=== PATIENT | female | born 1990 | race Caucasian/White ===

== ENCOUNTER 2017-03-20 00:16 | Emergency (ER) | payer OTHER ==
[~2017-03-20] VITALS: Ht 165.1 cm; Wt 64.0 kg
[~2017-03-20 00:16] MED LIST: DIAZ5 PO; IBUP-232 PO
[2017-03-20 00:22] VITALS: BP 126/87; PULSE 89; RESP 18; TEMP 98.7; O2SAT 97
--- NOTE | 2017-03-20 01:40 | RADRPT ---
EXAM DATE/TIME: 03/20/2017 01:34 CORRECTION Corrected on: March 27, 2017; corrected Indications- Location [facility] COMPARISON: CHEST SINGLE AP, December 18, 2015, 14:51. INDICATIONS : Cough, rib pain MEDICAL HISTORY : None SURGICAL HISTORY : None ENCOUNTER: Initial ACUITY: 2 weeks PAIN SCORE: 1/10 LOCATION: Bilateral chest FINDINGS: A single view of the chest demonstrates the lungs to be symmetrically aerated without evidence of mas s, infiltrate or effusion. The cardiomediastinal contours are unremarkable. Osseous structures are intact. CONCLUSION: Normal examination. Jomar Workman MD on March 20, 2017 at 1:37 Board Certified Radiologist. This report was verified electronically. Board Certified Radiologist. This report was verified electronically. on March 27, 2017 at 13:57
[2017-03-20 02:06] LABS: AUTOMATED NEUTROPHIL # 5.6 TH/MM3 (1.8-7.7); BASOPHIL # 0.1 TH/MM3 (0-0.2); BASOPHIL % 1.1 % (0.0-2.0); EOSINOPHIL # 0.3 TH/MM3 (0-0.4); HEMATOCRIT 39.3 % (35.0-46.0); HEMO FLAGS DIFF FINAL; LYMPH % 34.1 % (9.0-44.0); LYMPHOCYTE # 3.4 TH/MM3 (1.0-4.8); MEAN CELL VOLUME 93.9 FL (80.0-100.0); MEAN CORPUSCULAR HEMOGLOBIN 33.4 PG (27.0-34.0); MEAN CORPUSCULAR HGB CONC 35.5 % (32.0-36.0); NEUT % 55.8 % (16.0-70.0); PLATELET COUNT 243 TH/MM3 (150-450); RED BLOOD COUNT 4.19 MIL/MM3 (4.00-5.30); RED CELL DISTRIBUTION WIDTH 12.9 % (11.6-17.2)
[2017-03-20] MEDS ORDERED: COUG100S PO (03:35)
--- NOTE | 2017-03-20 03:35 | PD ---
HPI Chief Complaint: Respiratory Symptoms Time Seen by Provider: 01:01 Travel History International Travel<30 days: No Contact w/Intl Traveler<30days: No Traveled to known affect area: No History of Present Illness HPI 27yo F with no PMH presents to the ED with c/o cough for 2 weeks. States she has blood tinged sputum at times. +Nasal congestion. Denies any fever, chest pain, sob, n/v, abdominal pain, focal weakness or numbness. States her ribs hurt with coughing. Denies any trauma, history of PE, DVT. +Cig smoker. PFSH Past Medical History Diminished Hearing: No Musculoskeletal: Yes (chronic mid back pain) Reproductive: Yes ("double ovaries,split and tilted uterus") Immunizations Current: Yes Tetanus Vaccination: Unknown Influenza Vaccination: No ?: Not LMP: IRREGULAR CYCLE : 3 Para: 2 Miscarriage: 0 : 1 Tubal Ligation: Yes (2010) Past Surgical History Section: Yes (X 2 ) Gynecologic Surgery: Yes (C-SEC X 1) Social History Alcohol Use: Yes (OCC) Tobacco Use: Yes (cigs 1/2 ppd) Substance Use: No Allergies-Medications (Allergen,Severity, Reaction): Coded Allergies: Lortab (Verified Allergy, Severe, Itching, 03/20/17) STATES ONLY ALLERGIC TO BRAND NAME-STATES CAN TAKE HYDROCODONE,. Reported Meds & Prescriptions Reported Meds & Active Scripts Active Valium (Diazepam) 5 Mg Tab 5 Mg PO TID PRN 5 Days Ibuprofen 600 Mg Tab 600 Mg PO Q6H PRN Review of Systems Except as stated in HPI: all other systems reviewed are Neg Physical Exam Narrative GENERAL: 27yo F not in distress. SKIN: Focused skin assessment warm/dry. HEAD: Atraumatic. Normocephalic. EYES: Pupils equal and round. No scleral icterus. No injection or drainage. ENT: Throat clear. Uvula midline. NECK: Trachea midline. No JVD. CARDIOVASCULAR: Regular rate and rhythm. No murmur appreciated. RESPIRATORY: No accessory muscle use. Clear to auscultation. Breath sounds equal bilaterally. GASTROINTESTINAL: Abdomen soft, non-tender, nondistended. No rebound tenderness or guarding. MUSCULOSKELETAL: No obvious deformities. No clubbing. No cyanosis. No edema. NEUROLOGICAL: Awake and alert. No obvious cranial nerve deficits. Motor grossly within normal limits. Normal speech. PSYCHIATRIC: Appropriate mood and affect; insight and judgment normal. Data Data Last Documented VS Vital Signs Date Time Temp Pulse Resp B/P Pulse Ox O2 Delivery O2 Flow Rate FiO2 03/20/17 00:22 98.7 89 18 126/87 97 Orders Chest, Single Ap (03/20/17 ) Complete Blood Count With Diff (03/20/17 01:18) D-Dimer (03/20/17 01:18) Labs Laboratory Tests Test 03/20/17 01:45 White Blood Count 10.0 TH/MM3 Red Blood Count 4.19 MIL/MM3 Hemoglobin 14.0 GM/DL Hematocrit 39.3 % Mean Corpuscular Volume 93.9 FL Mean Corpuscular Hemoglobin 33.4 PG Mean Corpuscular Hemoglobin 35.5 % Concent Red Cell Distribution Width 12.9 % Platelet Count 243 TH/MM3 Mean Platelet Volume 8.8 FL Neutrophils (%) (Auto) 55.8 % Lymphocytes (%) (Auto) 34.1 % Monocytes (%) (Auto) 6.0 % Eosinophils (%) (Auto) 3.0 % Basophils (%) (Auto) 1.1 % Neutrophils # (Auto) 5.6 TH/MM3 Lymphocytes # (Auto) 3.4 TH/MM3 Monocytes # (Auto) 0.6 TH/MM3 Eosinophils # (Auto) 0.3 TH/MM3 Basophils # (Auto) 0.1 TH/MM3 CBC Comment DIFF FINAL Differential Comment D-Dimer Quantitative (PE/DVT) LESS THAN 0.19 MG/L FEU [facility] Medical Decision Making Medical Screen Exam Complete: Yes Emergency Medical Condition: Yes Differential Diagnosis Post nasal drip vs. bronchitis vs. pneumonia vs. asthma Narrative Course 27yo F here with cough for 2 weeks. Pt is well appearing. Labs reviewed, H/H normal at 14/39.3. No leukocytosis. D-dimer negative. CXR negative. Return precautions given. VS stable. Diagnosis Primary Impression: Cough Patient Instructions: General Instructions Departure Forms: Tests/Procedures Additional Instructions: Please follow up with your PMD in 3-7 days. Please try to stop smoking. Return to the ED if symptoms worsen. Med/Other Pt SpecificInfo: Prescription(s) given Scripts Guaifenesin (Cough Syrup)100 Mg/5 Ml [id number] Mg PO Q6H 5 Days Prov:Law,Joann DO 03/20/17 Disposition: 01 DISCHARGE HOME Condition: Stable Joann Law DO Mar 20, 2017 03:35
== END 2017-03-20 03:45 | disposition home or self-care (01) ==
LOC: NEPC 00:16
DX: R05 Cough (principal); F17.210 Nicotine dependence, cigarettes, uncomplicated
CPT/HCPCS: 71010; 85025; 85379; 99284

== ENCOUNTER 2017-06-03 03:12 | Emergency (ER) | payer OTHER ==
[~2017-06-03] VITALS: Ht 160 cm; Wt 65.0 kg
[~2017-06-03 03:12] MED LIST changes: +COUG100S PO
[2017-06-03 03:15] VITALS: BP 130/94; PULSE 120; RESP 16; TEMP 98.5; O2SAT 99
[2017-06-03 03:31] VITALS: BP 122/87; PULSE 112; RESP 18; O2SAT 98
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
[2017-06-03] MEDS ORDERED: NAPR220C22 PO (03:39)
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
[2017-06-03] MEDS ORDERED: IBUP800T23 PO (04:18)
[2017-06-03] MEDS ORDERED: IBUPROFEN 800 MG TAB PO ONE (04:30)
== END 2017-06-03 04:37 | disposition home or self-care (01) ==
LOC: NEPD 03:12
DX: F17.210 Nicotine dependence, cigarettes, uncomplicated (principal); S56.911A Strain of unspecified muscles, fascia and tendons at forearm level, right arm, initial encounter; Y04.2XXA Assault by strike against or bumped into by another person, initial encounter
CPT/HCPCS: 73070; 99283

== ENCOUNTER 2018-01-09 01:12 | Emergency (ER) | payer OTHER ==
[~2018-01-09] VITALS: Ht 152.4 cm; Wt 60.0 kg
[~2018-01-09 01:12] MED LIST changes: -COUG100S PO; -DIAZ5 PO; -IBUP-232 PO; +IBUP1TAB7 PO; +NAPR220C22 PO
[2018-01-09 01:16] VITALS: BP 139/95; PULSE 109; RESP 20; TEMP 97.9; O2SAT 98
[2018-01-09 01:46] LABS: AUTOMATED NEUTROPHIL # 4.5 TH/MM3 (1.8-7.7); BASOPHIL # 0.1 TH/MM3 (0-0.2); BASOPHIL % 0.9 % (0.0-2.0); EOSINOPHIL # 0.3 TH/MM3 (0-0.4); EOSINOPHIL % 3.8 % (0.0-4.0); HEMATOCRIT 41.9 % (35.0-46.0); HEMOGLOBIN 14.7 GM/DL (11.6-15.3); LYMPH % 40.2 % (9.0-44.0); LYMPHOCYTE # 3.7 TH/MM3 (1.0-4.8); MEAN CELL VOLUME 96.1 FL (80.0-100.0); MEAN CORPUSCULAR HEMOGLOBIN 33.7 PG (27.0-34.0); MEAN CORPUSCULAR HGB CONC 35.1 % (32.0-36.0); MONO % 6.4 % (0.0-8.0); MONOCYTE # 0.6 TH/MM3 (0-0.9); NEUT % 48.7 % (16.0-70.0); PLATELET COUNT 228 TH/MM3 (150-450); RED BLOOD COUNT 4.36 MIL/MM3 (4.00-5.30); WHITE BLOOD COUNT 9.2 TH/MM3 (4.0-11.0)
[2018-01-09 02:11] LABS: BICARBONATE 26.1 MEQ/L (21.0-32.0); BLOOD UREA NITROGEN 5 MG/DL (7-18); CALCIUM 9.4 MG/DL (8.5-10.1); CHLORIDE 108 MEQ/L (98-107); CREATININE 0.65 MG/DL (0.50-1.00); GLOMERULAR FILTRATION RATE 108 ML/MIN (>89); GLUCOSE,RANDOM 111 MG/DL (74-106); SODIUM (NA) 144 MEQ/L (136-145)
[2018-01-09 02:14] LABS: TROPONIN I LESS THAN 0.02 NG/ML (0.02-0.05)
--- NOTE | 2018-01-09 02:40 | RADRPT ---
EXAM DATE/TIME: 01/09/2018 02:26 [facility] COMPARISON: No previous studies available for comparison. INDICATIONS : Chest pain. MEDICAL HISTORY : None. SURGICAL HISTORY : None. ENCOUNTER: Initial ACUITY: 1 day PAIN SCORE: 8/10 LOCATION: Bilateral chest FINDINGS: PA and lateral views of the chest demonstrate the lungs to be symmetrically aerated without evidence of mass, infiltrate or effusion. The cardiomediastinal contours are unremarkable. Osseous structure s are intact. CONCLUSION: No acute disease. Jose Carrasco MD on January 09, 2018 at 2:38 Board Certified Radiologist. This report was verified electronically.
--- NOTE | 2018-01-09 12:13 | EKG ---
Date Performed: 01/09/2018 Time Performed: 01:29:37 PTAGE: 27 years EKG: SINUS TACHYCARDIA ABNORMAL RHYTHM ECG NO PREVIOUS TRACING DOCTOR: Tom Linton Interpretating Date/Time 01/09/2018 12:11:54
== END 2018-01-09 05:38 | disposition left against medical advice (07) ==
LOC: NED 01:12
DX: R07.9 Chest pain, unspecified (principal); R00.0 Tachycardia, unspecified; R94.31 Abnormal electrocardiogram [ECG] [EKG]; Z53.21 Procedure and treatment not carried out due to patient leaving prior to being seen by health care provider
CPT/HCPCS: 71046; 80048; 82550; 84484; 85025; 93005; 99281